=== PATIENT | male | born 1975 | race Caucasian/White ===

== ENCOUNTER 2017-07-03 13:28 | Emergency (ER) | payer MEDICAID | END 2017-07-03 15:16 | disposition home or self-care (01) | LOC: E/R 15:16 | DX: R05 Cough (principal); J02.9 Acute pharyngitis, unspecified; R51 Headache | CPT/HCPCS: 99284; Z7502 ==

== ENCOUNTER 2017-09-23 17:53 | Emergency (ER) | payer MEDICAID | END 2017-09-23 18:20 | disposition home or self-care (01) | LOC: E/R 17:53 | DX: R21 Rash and other nonspecific skin eruption (principal) | CPT/HCPCS: 99283 ==

== ENCOUNTER 2018-04-07 18:09 | Emergency (ER) | payer MEDICAID ==
[2018-04-07] MEDS: IBUPROFEN 600 MG TAB PO (20:41)
== END 2018-04-07 22:23 | disposition home or self-care (01) ==
LOC: FTE 18:09
DX: S62.326A Displaced fracture of shaft of fifth metacarpal bone, right hand, initial encounter for closed fracture (principal); X58.XXXA Exposure to other specified factors, initial encounter; Y92.9 Unspecified place or not applicable
CPT/HCPCS: 29125; 73130-RT; 99283-25